=== PATIENT | male | born 1960 | race Two or more races ===

== ENCOUNTER 2021-07-09 23:00 | Emergency (ER) | payer MEDICAID, OTHER ==
[~2021-07-09] VITALS: Ht 177.8 cm; Wt 52.2 kg
--- NOTE | 2021-07-09 23:20 | NUR ---
[facility] C/P OF L SIDE FOREHEAD LACERATION STATUS POST UNWITNESSED FALL FROM WHEELCHAIR. VERSED 5MG GIVEN BY EMS FOR AGITATION. MENTAL STATUS BASELINE PER FACILITY AND EMS ORIENTED X0. SWELLING AND APPROX 3CM LAC TO L SIDE FOREHEAD. PT CHANGED INTO GOWN AND PLACED ON MONITOR AND CERVIAL COLLAR.
[2021-07-10] MEDS ORDERED: TDAP [DIPH/PERTUSSIS/TET] 0.5 ML VIAL IM ONE ×2 (01:30→02:49)
[2021-07-10] MEDS ORDERED: LORAZEPAM INJ 2 MG/ML VIAL ONE (01:45)
[2021-07-10] MEDS ORDERED: LIDOCAINE MPF 1%-EPI 1:200,000 30 ML VIAL IJ ONE (01:57)
[2021-07-10] MEDS ORDERED: LORAZEPAM INJ 2 MG/ML VIAL IM ONE (02:00)
--- NOTE | 2021-07-10 02:59 | NUR ---
SPOKE TO MARIAN AT [facility] NAD REPORT GIVEN
--- NOTE | 2021-07-10 03:01 | NUR ---
[facility] ETA: [id number]
--- NOTE | 2021-07-10 04:17 | NUR ---
report given to apa, apa at bedside
--- NOTE | 2021-07-10 04:22 | NUR ---
PT BEING TRANSFERRED BACK TO [facility] VIA AMBULANCE IN STABLE CONDITION. DISCHARGE PAPERS GIVEN.
[2021-07-10 04:27] VITALS: BP 102/60
== END 2021-07-10 04:38 ==
LOC: ER 23:00
DX: S01.81XA Laceration without foreign body of other part of head, initial encounter (principal); F03.90 Unspecified dementia, unspecified severity, without behavioral disturbance, psychotic disturbance, mood disturbance, and anxiety; K21.9 Gastro-esophageal reflux disease without esophagitis; E11.9 Type 2 diabetes mellitus without complications; F32.A Depression, unspecified; F41.9 Anxiety disorder, unspecified; E03.9 Hypothyroidism, unspecified; W05.0XXA Fall from non-moving wheelchair, initial encounter; Y93.89 Activity, other specified; Y92.89 Other specified places as the place of occurrence of the external cause; Y99.8 Other external cause status
CPT/HCPCS: 12013; 70450; 72125; 90471; 90715; 96372; 99285; J2060; J3490